=== PATIENT | male | born 1975 | race African-American/Black ===

== ENCOUNTER 2020-10-23 23:46 | Inpatient (IN) | payer MEDICAID ==
[~2020-10-23] VITALS: Ht 177.8 cm; Wt 97.1 kg
--- NOTE | 2020-10-23 23:59 | NUR ---
MD Thomas at bedside to do MSE
--- NOTE | 2020-10-24 | NUR ---
Lab and xray at bedside
[2020-10-24 00:14] LABS: MEAN CORPUSCULAR HEMOGLOBIN 32.1 uug (23.8-33.4); PLATELET COUNT (AUTO) 226 K/uL (152-348)
[2020-10-24] MEDS ORDERED: ONDANSETRON 4 MG/2 ML VIAL IV ONE (00:15)
[2020-10-24] MEDS ORDERED: hydrALAZINE HCL 20 MG/1 ML VIAL IV ONE ×2 (00:15→01:30)
[2020-10-24 00:17] LABS: CREATININE 3.3 mg/dL (0.6-1.3); POTASSIUM 2.9 mmol/L (3.5-5.1)
[2020-10-24] MEDS ORDERED: hydrALAZINE HCL 20 MG/1 ML VIAL ONE ×2 (00:19→01:40)
[2020-10-24 00:26] LABS: ETHANOL < 3 MG/DL (0-0)
[2020-10-24 00:29] LABS: BILIRUBIN,DIRECT 0.1 mg/dL (0.0-0.2); BILIRUBIN,TOTAL 0.3 mg/dL (0.2-1.0); TOTAL PROTEIN, SERUM 7.7 g/dL (6.4-8.2)
--- NOTE | 2020-10-24 00:29 | NUR ---
Back from CT.
[2020-10-24] MEDS ORDERED: IV NS 1000 ML 1,000 ML IV ONE (00:45)
[2020-10-24] MEDS ORDERED: NITROGLYCERIN OINT 1 GM PACKET TP ONE ×2 (00:45→00:50)
[2020-10-24] MEDS ORDERED: POTASSIUM CHLORIDE 50 ML IV SCH ×2 (00:45→07:00)
[2020-10-24] MEDS ORDERED: POTASSIUM CHLORIDE 50 ML ONE (00:50)
[2020-10-24] MEDS ORDERED: ASPIRIN 325 MG TABLET PO ONE (01:00)
[2020-10-24] MEDS ORDERED: ACETAMINOPHEN ES 500 MG TABLET PO ONE (01:00)
[2020-10-24] MEDS ORDERED: ACETAMINOPHEN ES 500 MG TABLET ONE (01:08)
[2020-10-24] MEDS ORDERED: ASPIRIN 325 MG TABLET ONE (01:08)
--- NOTE | 2020-10-24 01:19 | NUR ---
Epic panel call placed, spoke to Seth, he stated she will get a hold of Dr. Michael for admitting.
--- NOTE | 2020-10-24 01:25 | NUR ---
Dr. Thomas on panel call with Dr. Michael. Patient accepted for admission to Telemetry unit. Sonya. TAHIR
--- NOTE | 2020-10-24 01:27 | NUR ---
Called for a room for patient, will be going to telemetry room 305.
--- NOTE | 2020-10-24 01:53 | NUR ---
COVID AG test is negative per labor relations analyst Humberto.
--- NOTE | 2020-10-24 02:30 | NUR ---
Pt. admitted to telemetry unit, room 305, under care of Dr. Michael. Belongs List completed
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
[2020-10-24 02:52] VITALS: BP 148/82
[2020-10-24] MEDS ORDERED: IV NS 1000 ML 1,000 ML IV PRN (03:00)
[2020-10-24] MEDS ORDERED: LORAZEPAM 1 MG TABLET PO PRN (03:00)
[2020-10-24] MEDS ORDERED: ONDANSETRON 4 MG/2 ML VIAL IV PRN (03:00)
[2020-10-24] MEDS ORDERED: hydrALAZINE HCL 25 MG TABLET PO PRN (03:00)
[2020-10-24 04:39] VITALS: BP 148/82
--- NOTE | 2020-10-24 06:08 | NUR ---
PATIENT ASLEEP IN BED. ON TELE SR. CALL LIGHT IN REACH. ALL NEEDS ATTENDED.
[2020-10-24 06:23] VITALS: BP 139/89
[2020-10-24] MEDS: PANTOPRAZOLE SODIUM 40 MG TABLET.DR PO SCH (06:24)
[2020-10-24 06:28] LABS: HEMATOCRIT 41.7 % (36.7-47.1); MEAN CORPUSCULAR HEMOGLOBIN 32.6 uug (23.8-33.4); MEAN CORPUSCULAR VOLUME 95.3 fL (73.0-96.2); PLATELET COUNT (AUTO) 209 K/uL (152-348)
[2020-10-24 06:37] LABS: BILIRUBIN,TOTAL 0.2 mg/dL (0.2-1.0); CREATININE 2.8 mg/dL (0.6-1.3); MAGNESIUM 2.6 mg/dL (1.8-2.4); PHOSPHOROUS 4.2 mg/dL (2.5-4.9); TOTAL PROTEIN, SERUM 6.8 g/dL (6.4-8.2)
[2020-10-24 06:51] LABS: POTASSIUM 2.5 mmol/L (3.5-5.1)
[2020-10-24 06:52] LABS: THYROID STIMULATING HORMONE 0.105 mIU/mL (0.358-3.740)
[2020-10-24] MEDS ORDERED: POTASSIUM CHLORIDE 20 MEQ TAB.PRT.SR PO ONE ×2 (08:00→15:00)
[2020-10-24] MEDS: ASPIRIN EC 81 MG TABLET.DR PO SCH (08:52)
[2020-10-24] MEDS: LOSARTAN POTASSIUM 50 MG TABLET PO SCH (08:53)
--- NOTE | 2020-10-24 09:13 | NUR ---
AM meds administered to patient at around 0850 and pt went back to sleep. At this time, patient does not want interruptions with his sleep, will offer Amlodipine when he is more awake.
[2020-10-24 11:22] LABS: *AMPHETAMINE, URINE NEGATIVE (NEGATIVE); *CANNABINOID, URINE POSITIVE (NEGATIVE); *COCCAINE, URINE NEGATIVE (NEGATIVE); *OPIATE, URINE NEGATIVE (NEGATIVE); *PHENCYCLIDINE SCREEN,URINE NEGATIVE (NEGATIVE)
[2020-10-24 11:58] VITALS: BP 156/110
[2020-10-24] MEDS: ACETAMINOPHEN 325 MG TABLET PO PRN (12:08)
[2020-10-24] MEDS: AMLODIPINE 10 MG TABLET PO SCH (12:08)
--- NOTE | 2020-10-24 13:08 | NUR ---
Pt accidentally pulled out his IV, wanted to wait x 1 hr before I can reinsert.
[2020-10-24] MEDS ORDERED: IV LACTATED RINGERS SOLUTION 1,000 ML IV SCH (14:30)
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
[2020-10-24 14:47] LABS: *CLARITY,URINE CLEAR (CLEAR); *COLOR,URINE LIGHT YELLOW (YELLOW); *CREATININE,URINE 45.4 mg/dL (30-125)
[2020-10-24 14:48] LABS: *BILIRUBIN,URIN NEGATIVE (NEGATIVE); *BLOOD, URINE TRACE LYSED (NEGATIVE); *KETONES,URINE NEGATIVE (NEGATIVE); *UROBILINOGEN,URINE 0.2 E.U./dl (NORMAL); LEUKOCYTE ESTERASE ,URINE NEGATIVE (NEGATIVE); NITRITE, URINE NEGATIVE (NEGATIVE); UGLUCOSE NEGATIVE (NEGATIVE)
[2020-10-24 15:58] VITALS: BP 147/100
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
--- NOTE | 2020-10-24 17:11 | NUR ---
Harness Maker note: This AIR TRAFFIC CONTROL SUPERVISOR met with the patient, and provided him with the information for the [employer] station and instructions on how to contact them: [place] [facility] [phone] If it's a recording, press option 5 in order to speak with the benefits officer
--- NOTE | 2020-10-24 19:30 | NUR ---
Received patient lying in bed. Asleep but easily arouse to verbal stimuli. AOx4. In no acute distress. Denies any pain or SOB. NSR on tele at 77/min. IV site on left FA intact and patent. IVF infusing. Needs assessed and attended to. Safety measure initiated and call eaton within reached.
[2020-10-24 20:00] VITALS: BP 140/81
[2020-10-24] MEDS: ATORVASTATIN 40 MG TABLET PO SCH (20:21)
[2020-10-25] VITALS: BP 146/91
[2020-10-25] MEDS: IV LACTATED RINGERS SOLUTION 1,000 ML IV PRN (04:57)
--- NOTE | 2020-10-25 05:39 | NUR ---
Patient refused to have Vital sign taken by CALI Ríos, per Khushbu's report.
[2020-10-25] MEDS: PANTOPRAZOLE SODIUM 40 MG TABLET.DR PO SCH (06:08)
--- NOTE | 2020-10-25 06:12 | NUR ---
Patient remains AOx4. In no acute distress. Gets easily annoyed/irritated, wanted to be left alone. No complain of pain or SOB. refused to have VS taken this AM as well as due medication for AM. IV site on left hand remains intact and patent. IVF infusing. NSR on tele at 77/min. Safety measure maintained and call eaton within reached.
[2020-10-25 07:30] LABS: CREATININE 2.3 mg/dL (0.6-1.3); POTASSIUM 3.3 mmol/L (3.5-5.1)
[2020-10-25] MEDS: ASPIRIN EC 81 MG TABLET.DR PO SCH (07:55)
[2020-10-25] MEDS: AMLODIPINE 10 MG TABLET PO SCH (07:56)
[2020-10-25] MEDS: CARVEDILOL 6.25 MG TABLET PO SCH ×2 (07:56→17:31)
[2020-10-25] MEDS: LOSARTAN POTASSIUM 50 MG TABLET PO SCH (07:57)
[2020-10-25 08:00] VITALS: BP 159/95
[2020-10-25] MEDS ORDERED: POTASSIUM CHLORIDE 20 MEQ POWDER PACKET PO ONE (08:00)
[2020-10-25] MEDS: ACETAMINOPHEN 325 MG TABLET PO PRN ×3 (08:14→22:17)
--- NOTE | 2020-10-25 10:16 | NUR ---
patient is refusing being on the monitor went into the shower and pulled out IV. does not want to follow instruction or plan of care. was ambulating in the unit and is also attempting to go into patient kitchen when told he was not supposed to be going there and needs to call for assistance. informed dr dillon to inform him that he is not compliance.
--- NOTE | 2020-10-25 10:24 | NUR ---
Dr. Brito called back. DC monitor. Plan to see neurology for consult if patient allows and be discharged today. ok to not have IV reinserted.
--- NOTE | 2020-10-25 14:00 | NUR ---
Report received from Deanna Paulino and as reported pt. with no IV access as he pulled everything out more than once and Md. aware.
[2020-10-25 15:09] VITALS: BP 145/102
[2020-10-25] MEDS: hydrALAZINE HCL 50 MG TABLET PO SCH ×2 (15:21→21:14)
--- NOTE | 2020-10-25 16:15 | NUR ---
With charge R.N. Dr. Duncan and patient had an audio-conference and as reported spoke with pt. and discussed care plan (CT Angiogram brain).
--- NOTE | 2020-10-25 16:17 | NUR ---
As per radiology creatinine elevated and suggested hydration then the test within 48hrs. unless otherwise ordered by neurologist. Dr. Duncan notified and also informed of pt's non-compliance with Iv treatment and nursing care, and as stated by "cta brain not urgent". charge R.N. aware.
--- NOTE | 2020-10-25 16:28 | NUR ---
Attending notified and orders to continue with care plan and restart hydration if pt. compliant with care. otherwise as stated by Md. "I'll reevaluate him tomorrow for possible dcd"
--- NOTE | 2020-10-25 17:11 | NUR ---
New IV access to LFA inner area. G20 Addendum: 10/25/20 at 1713 by DWIGHT PEREZ RN ivf restarted as well. pt. agreed to proceed with care plan.
--- NOTE | 2020-10-25 17:36 | NUR ---
Patient left in room resting comfortably IV line to LFA with IV fluids infusing as ordered. pt. on room air with saturation within desired limits. Compliant with sbp medications, no report of chest pain. No CTA brain done due to high creatinine both ordering physician and attending aware.
[2020-10-25 20:00] VITALS: BP 137/83
[2020-10-25] MEDS: ATORVASTATIN 40 MG TABLET PO SCH (20:25)
[2020-10-25] MEDS: MUPIROCIN 2% OINT 22 GM TUBE NS SCH (21:19)
[2020-10-26] MEDS: IV LACTATED RINGERS SOLUTION 1,000 ML IV PRN ×2 (00:39→12:35)
[2020-10-26] MEDS: PANTOPRAZOLE SODIUM 40 MG TABLET.DR PO SCH (06:04)
[2020-10-26] MEDS: hydrALAZINE HCL 50 MG TABLET PO SCH ×3 (06:04→21:01)
[2020-10-26 06:17] VITALS: BP 156/99
--- NOTE | 2020-10-26 06:24 | NUR ---
Patient resting in bed comfortably. Denies pain at this time.No acute distress noted at this time. Iv patent and intact with IVF running well.All due meds given.Continue safety measures.Call light with in reach.
[2020-10-26] MEDS: LOSARTAN POTASSIUM 50 MG TABLET PO SCH (08:01)
[2020-10-26] MEDS: ASPIRIN EC 81 MG TABLET.DR PO SCH (08:01)
[2020-10-26] MEDS: AMLODIPINE 10 MG TABLET PO SCH (08:01)
[2020-10-26] MEDS: MUPIROCIN 2% OINT 22 GM TUBE NS SCH ×2 (08:02→20:11)
[2020-10-26] MEDS: CARVEDILOL 6.25 MG TABLET PO SCH ×2 (08:07→17:09)
[2020-10-26 09:46] LABS: CREATININE 2.3 mg/dL (0.6-1.3)
[2020-10-26 13:42] VITALS: BP 124/82
[2020-10-26] MEDS ORDERED: hydrALAZINE HCL 50 MG TABLET PO SCH (14:00)
[2020-10-26 15:41] VITALS: BP 142/55
[2020-10-26 20:00] VITALS: BP 146/89
[2020-10-26] MEDS: ATORVASTATIN 40 MG TABLET PO SCH (20:12)
[2020-10-26] MEDS: ACETAMINOPHEN 325 MG TABLET PO PRN (20:28)
--- NOTE | 2020-10-27 05:38 | NUR ---
Pt slept throughout the night. Cooperative and pleasant. Denies SOB. C/o pain in right flank and requested Tylenol at the beginning of the shift. Pt able to ambulate with cane without assistance. IV site intact and patent, running ordered fluids. Safety and comfort provided, call light within reach. No other issues or concerns at this time, will endorse to day shift.
[2020-10-27] MEDS: IV LACTATED RINGERS SOLUTION 1,000 ML IV PRN (06:12)
[2020-10-27] MEDS: PANTOPRAZOLE SODIUM 40 MG TABLET.DR PO SCH (06:14)
[2020-10-27] MEDS: hydrALAZINE HCL 50 MG TABLET PO SCH (06:15)
[2020-10-27 06:18] VITALS: BP 144/93
[2020-10-27] MEDS: CARVEDILOL 6.25 MG TABLET PO SCH (08:00)
[2020-10-27] MEDS: LOSARTAN POTASSIUM 50 MG TABLET PO SCH (08:00)
[2020-10-27] MEDS: MUPIROCIN 2% OINT 22 GM TUBE NS SCH (08:00)
[2020-10-27] MEDS: ASPIRIN EC 81 MG TABLET.DR PO SCH (08:00)
[2020-10-27] MEDS: AMLODIPINE 10 MG TABLET PO SCH (08:00)
[2020-10-27 12:00] VITALS: BP 132/52
--- NOTE | 2020-10-27 13:26 | NUR ---
DC ORDERS RECEIVED NOTED AND CARRIED OUT,DC HEPLOCK PER MD ORDERS.DC INSTRUCTION AND EDUCATION GIVEN TO THE PT ,PT REFUSED TO SIGN THE DC PAPER ,PT TOOK HIS MEDICATION PRESCRIPTION AND EXIT CARE PAPERS .PT LEFT THE FACILITY VIA WALKING FROM THE HOSPITAL IN STABLE CONDITION
--- NOTE | 2020-10-27 13:46 | NUR ---
JALEN NOTE: SW met with patient today for a follow up visit requested by nurse because patient was complaining that no one was helping him. Upon assessment, patient presents guarded. Patient presents with irritable mood and congruent affect. Patient is alert and oriented x4 and is independent with his ADLs. Patient is currently homeless. Patient stated that he would like somewhere to go to recover. Pt sated no one is helping me. SW reviewed patients insurance and informed that since he has straight medical, he may not qualify for a detention facility. Patient became upset and stated, then where can I go?. SW offered patient a possible board and care. Patient states he did not want to pay out of pocket for anything. SW informed patient this may be the only option. SW also provided list of homeless shelters and patient stated, sure correction is better than nothing. SW contacted the following shelters for possible placement at a correction: [facility], ; [facility] [phone]; [facility], [facility] [phone]; [facility], ; [facility] [phone]; [facility], [facility] [phone]; [facility] [phone]; [facility], [facility], . However, none of the shelters above where able to accept the patient today or were closed for COVID lockdown. SW informed patient that the shelters did not have availability at this time and patient became angry. SW offered patient affordable Motel options in the [place] and patient declined. Patient began to yell at this social service liaison and refused to go to a Motel. Patient states, just give me the correction packet and Ill leave on my own. JALEN spoke with proposal development manager Khushbu and informed her of the patients discharge plan. Patient is choosing to be discharged to himself. SW provided the patient with the following resources: Homeless Resource Packet: the [phone] [facility] Winter Long-Term Program that provides locations of the winter shelters: [facility], ; [facility], [facility] [address], ; [facility], [facility], [address], [address], ; [facility] [place], [place], [address] [place], [address], ; [facility] [place], [facility], [address] [place], [address]; [phone]; [facility], [facility], [address] [place], [address], ; [facility], [address], [address], [phone]; Home at Last [facility], [address], [address], ; Home at Last [facility], [address], [address], ; [facility] [place], [facility], [address] ,[place] [address], ; [facility] [place], [facility], [address] [facility], [address], ; [facility] [place], [facility], [address], [address], ; the [facility] homeless directory which provides a list of places that individuals can go to throughout the week for hot meals, sack lunches, food pantries, and showers; a list of mental health clinics: [facility] [address] [place] [address], ; [facility] [address] [facility] [address], ; [facility] [address] [place] [address], ; a list of medical clinics: [facility] [address] [facility] [address], [place]. [place], ; [facility] [address] [facility], [address], [place] [address]; [facility] [address] [facility] [place] [address], ; and a list of substance abuse programs: [facility] Substance Abuse Self-helpline ; [facility] ; [facility] ; [facility] ; [facility] ; [facility] [phone]; [facility] [phone]. SW also provided patient with information on locations of pharmacies. Patient signed the Homeless Patient Waiver form, and this SW filed the form in patient's chart.
== END 2020-10-27 13:30 | disposition home or self-care (01) | DRG 199 ==
LOC: ER 23:49 → TELE3 10-24 02:14 → MEDSURG3 10-25 14:47
PROVIDERS: ADMIT Internal Medicine; ATTEND Internal Medicine
DX: I16.0 Hypertensive urgency (principal); N17.0 Acute kidney failure with tubular necrosis; E87.6 Hypokalemia; I12.9 Hypertensive chronic kidney disease with stage 1 through stage 4 chronic kidney disease, or unspecified chronic kidney disease; Z59.0 Homelessness; R53.1 Weakness; E86.1 Hypovolemia; G44.309 Post-traumatic headache, unspecified, not intractable; Z20.822 Contact with and (suspected) exposure to COVID-19; F17.210 Nicotine dependence, cigarettes, uncomplicated; I69.398 Other sequelae of cerebral infarction; Z82.49 Family history of ischemic heart disease and other diseases of the circulatory system; Z91.19 Patient's noncompliance with other medical treatment and regimen; Z91.81 History of falling; N18.4 Chronic kidney disease, stage 4 (severe)
CPT/HCPCS: 36415; 70030-TC; 70450; 71045; 83735; 84100; 84443; 84520; 85025; 93005; 93307; A4663; A9150; G0378; G0480; J0360; J3480; J7120